=== PATIENT | female | born 1980 | race African-American/Black ===

== ENCOUNTER 2018-05-25 01:23 | Emergency (ER) | payer MEDICARE ==
[~2018-05-25] VITALS: Ht 154.9 cm; Wt 54.4 kg
[2018-05-25] MEDS ORDERED: NIFEDIPINE 10 MG CAP PO STA ×2 (01:52→01:55)
[2018-05-25] MEDS ORDERED: NIFEDIPINE 10 MG CAP PO ONE (01:54)
[2018-05-25 02:36] VITALS: BP 139/102
== END 2018-05-25 02:43 | disposition home or self-care (01) ==
LOC: ER 01:23
DX: Z76.0 Encounter for issue of repeat prescription (principal); I10 Essential (primary) hypertension
CPT/HCPCS: 99283